=== PATIENT | female | born 1995 | race Caucasian/White ===

== ENCOUNTER 2022-02-22 18:28 | Emergency (ER) | payer OTHER ==
[~2022-02-22] VITALS: Ht 167.6 cm; Wt 81.9 kg
[2022-02-22 18:35] VITALS: BP 117/78
--- NOTE | 2022-02-22 18:54 | PHYS DOC ---
General Adult EDM: Chief Complaint: SHOULDER INJURY HPI: HPI: Patient is a 26-year-old female who presents to the emergency department for right shoulder pain. Patient reports that she feels like she is a muscle in her shoulder at work and then last night she was out drinking and she fell onto her right shoulder. She rates her pain 8 on 10. No treatment prior to arrival. Patient reports pain with range of motion but denies any decreased sensation to her extremity. Patient is also reporting a productive cough. She reports that her children are sick with viral symptoms. She reports mild shortness of breath. She denies nasal congestion, fevers, nausea, vomiting. (SANDRITA RECINOS APRN) Review of Systems: Review of Systems: Constitutional: See HPI HENT: see HPI Respiratory: See HPI GI: See HPI Musculoskeletal: See HPI Neurologic: See HPI (SANDRITA RECINOS APRN) Physical Exam: PE: Constitutional: Well developed, well nourished, no acute distress, non-toxic appearance. [] HENT: Normocephalic, atraumatic, bilateral external ears normal, oropharynx moist, no oral exudates, nose normal. [] Eyes: PERRL, EOMI, conjunctiva normal, no discharge. [] Neck: Normal range of motion, no stridor Cardiovascular:Heart rate regular rhythm, no murmur [] Lungs & Thorax: Bilateral breath sounds clear to auscultation [] Abdomen: Bowel sounds normal, soft, no tenderness, no masses, no pulsatile masses. [] Skin: Warm, dry, no erythema, no rash. [] Back normal range of motion Extremities: No tenderness, no cyanosis, no clubbing, ROM intact, no edema. [] Right shoulder: Pain with palpation to right scapula that radiates to her shoulder no obvious deformity range of motion due to pain, neuro intact Neurologic: Alert and oriented X 3, normal motor function, normal sensory function, no focal deficits noted. [] Psychologic: Affect normal, judgement normal, mood normal. [] (SANDRITA RECINOS APRN) EKG: EKG: [] (SANDRITA RECINOS APRN) Radiology/Procedures: Radiology/Procedures: []REASON: fall onto shoulder PROCEDURE: SHOULDER 2+V RIGHT XR SHOULDER_RIGHT 2+ VIEWS DATE: 02/22/2022 7:10 PM INDICATION: fall onto shoulder , pain COMPARISON: None. FINDINGS: Bones: There is no evidence of acute fracture or dislocation. Joints: The joint spaces are normal. The acromiohumeral distance is not narrowed. Miscellaneous: No abnormal soft tissue calcifications in the shoulder. IMPRESSION: No evidence of acute fracture. Electronically signed by: Marybel Yoder MD (02/22/2022 7:34 PM) [facility] DICTATED AND SIGNED BY: MARYBEL YODER MD DATE: 02/22/221932 CC: VERNELL LEES; SANDRITA RECINOS APRN ~ REASON: fall onto shoulder PROCEDURE: PORTABLE CHEST 1V XR CHEST 1V INDICATION: fall onto shoulder COMPARISON STUDY: None. FINDINGS: Lungs: Normal lung volume. No pulmonary mass or consolidation. The tracheobronchial tree and hilar structures are normal. Pleura: No pleural effusion or pneumothorax. Heart and Mediastinum: The cardiomediastinal silhouette is normal. The great vessels of the thorax are normal. Bones and Soft Tissues: The bones and soft tissues are within normal limits. IMPRESSION: No acute cardiopulmonary process. Electronically signed by: Marybel Yoder MD (02/22/2022 7:34 PM) [facility] DICTATED AND SIGNED BY: MARYBEL YODER MD DATE: 02/22/221933 CC: VERNELL LEES; SANDRITA RECINOS APRN ~ (SANDRITA RECINOS APRN) Heart Score: C/O Chest Pain: N/A Risk Factors: Risk Factors: DM, Current or recent (<one month) smoker, HTN, HLP, family history of CAD, obesity. Risk Scores: Score 0 - 3: 2.5% MACE over next 6 weeks - Discharge Home Score 4 - 6: 20.3% MACE over next 6 weeks - Admit for Clinical Observation Score 7 - 10: 72.7% MACE over next 6 weeks - Early Invasive Strategies (SANDRITA RECINOS APRN) Course & Med Decision Making: Course & Med Decision Making Pertinent Labs and Imaging studies reviewed. (See chart for details) [] Patient resents to the emergency department for right shoulder pain. An x- ray was performed that showed no acute findings. Patient's shoulder was placed in a sling she was given an ice pack. Patient advised to take anti-inflammatory medications. Patient is also in to be evaluated for a productive cough. Patient will be tested for Covid and influenza and have a chest x-ray performed to rule out pneumonia. Rapid influenza and COVID test negative. Chest x-ray did not show any acute findings. Patient will be discharged home with cough medication. Vital signs are stable. I discussed with patient all findings and diagnostic testing as well as the need to follow-up with PCP for further evaluation and treatment or return to the ER if any new or worsening symptoms. Strict return precautions were also discussed at length. Patient voiced understanding and agreement with the plan. Patient is hemodynamically stable at the time of disposition. (SANDRITA RECINOS APRN) Dragon Disclaimer: Dragon Disclaimer: This electronic medical record was generated, in whole or in part, using a voice recognition dictation system. (SANDRITA RECINOS APRN) Attending Co-Sign The patient was seen and interviewed as well as examined at the bedside. The chart was reviewed. The case was discussed. Agree with the plan of care. (PEREZ RODRIGUEZ DO) Departure Departure: Impression: Primary Impression: Cough Additional Impression: Fall Qualified Codes: W19.XXXA - Unspecified fall, initial encounter Disposition: HOME / SELF CARE / HOMELESS Condition: GOOD Referrals: VERNELL LEESP-C (PCP) Patient Instructions: Arm Sling Use, [id number], Cough, Adult, [id number] Additional Instructions: You are seen in the emergency department today for shoulder pain following a fall. Imaging performed did not show any acute findings. Take Tylenol and/or ibuprofen and apply ice. You are also reporting a cough. Chest x-ray did not show any acute pneumonia. Your Covid and influenza test were negative. You are being discharged home with cough medication that you can take. Follow-up with your primary care provider within a week. Return to the emergency department if you develop worsening of your shoulder pain, decreased range of motion or decreased sensation in your extremity, shortness of breath, chest pain, high fevers refractory to treatment, intractable nausea or vomiting, weakness. Scripts Benzonatate (BENZONATATE) 100 Mg Capsule 1 CAP PO TID for cough for 7 Days, #21 CAP 0 Refills Prov: SANDRITA RECINOS APRN 02/22/22 SANDRITA RECINOS APRN Feb 22, 2022 18:54 PEREZ RODRIGUEZ DO Feb 24, 2022 05:52
[2022-02-22] MEDS ORDERED: ACETAMINOPHEN 325 MG TABLET PO ONE (19:30)
--- NOTE | 2022-02-22 19:36 | RAD ---
XR SHOULDER_RIGHT 2+ VIEWS DATE: 02/22/2022 7:10 PM INDICATION: fall onto shoulder , pain COMPARISON: None. FINDINGS: Bones: There is no evidence of acute fracture or dislocation. Joints: The joint spaces are normal. The acromiohumeral distance is not narrowed. Miscellaneous: No abnormal soft tissue calcifications in the shoulder. IMPRESSION: No evidence of acute fracture. Electronically signed by: Davy Yoder MD (02/22/2022 7:34 PM) [facility]
--- NOTE | 2022-02-22 19:37 | RAD ---
XR CHEST 1V INDICATION: fall onto shoulder COMPARISON STUDY: None. FINDINGS: Lungs: Normal lung volume. No pulmonary mass or consolidation. The tracheobronchial tree and hilar st ructures are normal. Pleura: No pleural effusion or pneumothorax. Heart and Mediastinum: The cardiomediastinal silhouette is normal. The great vessels of the thorax ar e normal. Bones and Soft Tissues: The bones and soft tissues are within normal limits. IMPRESSION: No acute cardiopulmonary process. Electronically signed by: Davy Yoder MD (02/22/2022 7:34 PM) [facility]
[2022-02-22] MEDS ORDERED: BENZ-8 PO (19:56)
[2022-02-22 20:09] LABS: INFLUENZA A PATIENT NEGATIVE (NEGATIVE); INFLUENZA B PATIENT NEGATIVE (NEGATIVE)
== END 2022-02-22 20:20 | disposition home or self-care (01) ==
LOC: ER 18:28
DX: R05.9 Cough, unspecified (principal); M25.511 Pain in right shoulder; R06.02 Shortness of breath; Z20.822 Contact with and (suspected) exposure to COVID-19; W18.39XA Other fall on same level, initial encounter; Y93.89 Activity, other specified; Y92.89 Other specified places as the place of occurrence of the external cause; Y99.8 Other external cause status
CPT/HCPCS: 71045; 73030; 87428; 99284

== ENCOUNTER 2022-04-05 19:34 | Emergency (ER) | payer OTHER ==
[~2022-04-05] VITALS: Ht 167.6 cm; Wt 81.9 kg
[~2022-04-05 19:34] MED LIST: BENZ-8 PO
--- NOTE | 2022-04-05 19:39 | PHYS DOC ---
Past History Past Surgical History: Cholecystectomy Alcohol Use: Occasionally General Adult EDM: Chief Complaint: ABDOMINAL PAIN HPI: HPI: Patient is a 26-year-old female brought in by home EMS for epigastric and right upper quadrant pain. Patient states she had similar pain 2 days ago that was relieved with vomiting. Patient states that time it lasted about 10 to 15 jagjit leonard. Has been going on about 25 minutes before calling EMS. States she has vomited multiple times followed by dry heaving. Patient states she started 2 new medications 2 days ago. Patient states this feels similar to the pain she had with her gallbladder, had a cystectomy 1 year ago Review of Systems: Review of Systems: All other systems within normal limits except for as noted in the HPI Allergies: Allergies: Allergies Coded Allergies Type Severity Reaction Last Updated Verified No Known Drug Allergies 02/22/22 No Physical Exam: PE: Constitutional: Well developed, well nourished, no acute distress, non-toxic appearance. [] HENT: Normocephalic, atraumatic, bilateral external ears normal, nose normal. [] Eyes: PERRLA, conjunctiva normal, no discharge. [] Neck: No rigidity, supple, no stridor. [] Cardiovascular: Regular rate and rhythm, brisk cap refill [] Lungs & Thorax: Non labored symmetric respirations, no tachypnea or respiratory distress [] Abdomen: Soft, nondistended, epigastric and right upper quadrant tenderness. Skin: Warm, dry, no erythema, no rash. [] Back: Unremarkable Extremities: No deformities, range of motion grossly intact, no lower extremity edema [] Neurologic: Alert and oriented X 3, no focal deficits noted. [] Psychologic: Affect normal, judgement normal, mood normal. [] EKG: EKG: [] Radiology/Procedures: Radiology/Procedures: [][address] [address] IMAGING REPORT Signed PATIENT: ARTHUR RAO ACCOUNT: [id number] : 1995 LOCATION: ER AGE: 26 SEX: F EXAM STATUS: REG ER ORD. PHYSICIAN: DAVID HARDING MD REASON: Upper abd pain Hx: Cholecystectomy PROCEDURE: CT ABDOMEN PELVIS WO CONTRAST Abdominal and Pelvis CT, Without Contrast: History: Reason: Upper abd pain Hx: Cholecystectomy / Spl. Instructions: / History: Comparison: None. Procedure: Axial images are obtained of the abdomen and pelvis, without IV or oral contrast. Oral Contrast: No Findings: Evaluation of solid organs is limited without contrast. There is bilateral spondylolysis at L5-S1. There is prior cholecystectomy. The appendix is normal. Liver: Mild periportal edema. Spleen: Borderline enlarged. Pancreas: Normal. Adrenal Glands: Normal. Kidneys: There is a few tiny nonobstructive stone down to the right renal pelvis. There is no free air or free fluid. There is no lymphadenopathy. The urinary bladder appears normal. There is no pericolonic inflammation identified. Impression: 1. Bilateral spondylolysis at L5-S1. 2. Borderline splenomegaly. 3. Nonobstructive stones in the right renal pelvis. No obstructive uropathy. 4. Periportal edema in the liver is nonspecific but can be secondary to hepatitis. End impression PQRS Compliance Statement: One or more of the following individualized dose reduction techniques were utilized for this examination: 1. Automated exposure control 2. Adjustment of the mA and/or kV according to patient size 3. Use of iterative reconstruction technique Electronically signed by: Radha Avitia III, MD (04/05/2022 9:23 PM) [facility] DICTATED AND SIGNED BY: RADHA AVITIA III, MD DATE: 04/05/222113 CC: DAVID HARDING MD; VERNELL LEES CARE ATTENDANT-C ~ Heart Score: C/O Chest Pain: No Risk Factors: Risk Factors: DM, Current or recent (<one month) smoker, HTN, HLP, family history of CAD, obesity. Risk Scores: Score 0 - 3: 2.5% MACE over next 6 weeks - Discharge Home Score 4 - 6: 20.3% MACE over next 6 weeks - Admit for Clinical Observation Score 7 - 10: 72.7% MACE over next 6 weeks - Early Invasive Strategies Course & Med Decision Making: Course & Med Decision Making Pertinent Labs and Imaging studies reviewed. (See chart for details) Pain relieved with GI cocktail. Sent labs for hepatitis, due to abnormal appearance of liver on the CT scan. Patient's mom states that she has a previous history of overdosing with Tylenol and has some residual liver damage. LFTs are unremarkable [] CT scans had to be done without contrast due to national shortage. Shannan Disclaimer: Shannan Disclaimer: This electronic medical record was generated, in whole or in part, using a voice recognition dictation system. Departure Departure: Impression: Primary Impression: Gastritis Disposition: HOME / SELF CARE / HOMELESS Condition: STABLE Referrals: VERNELL LEES CARE ATTENDANT-C (PCP) Patient Instructions: Gastritis, Adult Scripts Omeprazole (OMEPRAZOLE) 40 Mg Capsule.dr 1 CAP PO DAILY for antacid, #30 CAP 3 Refills Prov: DAVID HARDING MD 04/05/22 Sucralfate (SUCRALFATE) 1 Gm Tablet 1 TAB PO TID for gastritis, #30 TAB 0 Refills Prov: DAVID HARDING MD 04/05/22 DAVID HARDING MD April 05, 2022 19:39
[2022-04-05] MEDS ORDERED: ONDANSETRON PF 4 MG/2 ML VIAL. IVP ONE (20:00)
[2022-04-05] MEDS ORDERED: KETOROLAC 15 MG/ML VIAL. IVP ONE (20:00)
[2022-04-05 20:41] LABS: BASO % 0 % (0-3); EOS % 1 % (0-3); HEMOGLOBIN 13.4 g/dL (12.0-15.5); LYMPH # 1.8 x10^3/uL (1.0-4.8); LYMPH % 19 % (24-48); MEAN CORPUSCULAR HEMOGLOBIN 29 pg (25-35); MEAN CORPUSCULAR HGB CONC 34 g/dL (31-37); MEAN CORPUSCULAR VOLUME 85 fL (79-100); MONO # 0.5 x10^3/uL (0.0-1.1); MONO % 5 % (0-9); NEUT # 7.3 x10^3uL (1.8-7.7); NEUT % 76 % (31-73); PLATELET COUNT 205 x10^3/uL (140-400); RED BLOOD COUNT 4.68 x10^6/uL (3.50-5.40); RED CELL DISTRIBUTION WIDTH 14.8 % (11.5-14.5); WHITE BLOOD COUNT 9.6 x10^3/uL (4.0-11.0)
[2022-04-05 20:50] LABS: CALCIUM 8.9 mg/dL (8.5-10.1); CREATININE 0.7 mg/dL (0.6-1.0); GFR 102.8; POTASSIUM 4.3 mmol/L (3.5-5.1)
[2022-04-05 20:56] LABS: ALBUMIN 3.5 g/dL (3.4-5.0); TOTAL BILIRUBIN 0.9 mg/dL (0.2-1.0)
--- NOTE | 2022-04-05 21:26 | RAD ---
Abdominal and Pelvis CT, Without Contrast: History: Reason: Upper abd pain Hx: Cholecystectomy / Spl. Instructions: / History: Comparison: None. Procedure: Axial images are obtained of the abdomen and pelvis, without IV or oral contrast. Oral Contrast: No Findings: Evaluation of solid organs is limited without contrast. There is bilateral spondylolysis at L5-S1. There is prior cholecystectomy. The appendix is normal. Liver: Mild periportal edema. Spleen: Borderline enlarged. Pancreas: Normal. Adrenal Glands: Normal. Kidneys: There is a few tiny nonobstructive stone down to the right renal pelvis. There is no free air or free fluid. There is no lymphadenopathy. The urinary bladder appears normal. There is no pericolonic inflammation identified. Impression: 1. Bilateral spondylolysis at L5-S1. 2. Borderline splenomegaly. 3. Nonobstructive stones in the right renal pelvis. No obstructive uropathy. 4. Periportal edema in the liver is nonspecific but can be secondary to hepatitis. End impression PQRS Compliance Statement: One or more of the following individualized dose reduction techniques were utilized for this examinat ion: 1. Automated exposure control 2. Adjustment of the mA and/or kV according to patient size 3. Use of iterative reconstruction technique Electronically signed by: Richard Dorantes III, MD (04/05/2022 9:23 PM) [facility]
[2022-04-05] MEDS ORDERED: LIDO:MAALOX 1:1 20 ML SINGLE DOSE. PO ONE (21:30)
[2022-04-05] MEDS ORDERED: FAMOTIDINE 20 MG/2 ML VIAL IVP ONE (22:00)
[2022-04-05 22:25] LABS: BACTERIA,URINE 0 /HPF (0-FEW); CLARITY,URINE CLEAR; COLOR,URINE YELLOW; GLUCOSE,URINE NEG (NEG); NITRITE,URINE NEG (NEG); RBC,URINE OCC /HPF (0-2); SQUAMOUS EPITHELIAL CELL,UR MOD /LPF; UROBILINOGEN,URINE 0.2 mg/dL (0.2 mg/dL); WBC,URINE 0 /HPF (0-4)
[2022-04-05] MEDS ORDERED: OMEP40CA7 PO (22:37)
[2022-04-05] MEDS ORDERED: SUCR1TAB PO (22:37)
[2022-04-05] MEDS ORDERED: FAMOTIDINE 20 MG/2 ML VIAL ONE (23:05)
[2022-04-05 23:16] VITALS: BP 98/64
== END 2022-04-05 23:15 | disposition home or self-care (01) ==
LOC: ER 19:34
DX: K29.70 Gastritis, unspecified, without bleeding (principal); Z90.49 Acquired absence of other specified parts of digestive tract
CPT/HCPCS: 36415; 74176; 80053; 81001; 81025; 83690; 85025; 86705; 86709; 86803; 87340; 96374; 96375; 99284; J1885; J2405; J3490

== ENCOUNTER 2022-04-09 08:41 | Emergency (ER) | payer OTHER ==
[~2022-04-09] VITALS: Ht 167.6 cm; Wt 81.9 kg
[~2022-04-09 08:41] MED LIST changes: +OMEP40CA7 PO; +SUCR1TAB PO
[2022-04-09 08:52] VITALS: BP 114/60
[2022-04-09] MEDS ORDERED: IV NORMAL SALINE 1,000ML 1,000 ML IV ONE (09:00)
[2022-04-09] MEDS ORDERED: ONDANSETRON PF 4 MG/2 ML VIAL. IVP ONE (09:15)
[2022-04-09 09:34] LABS: BASO % 0 % (0-3); EOS % 0 % (0-3); HEMATOCRIT 43.6 % (36.0-47.0); HEMOGLOBIN 14.9 g/dL (12.0-15.5); LYMPH # 0.6 x10^3/uL (1.0-4.8); LYMPH % 6 % (24-48); MEAN CORPUSCULAR HEMOGLOBIN 29 pg (25-35); MEAN CORPUSCULAR HGB CONC 34 g/dL (31-37); MEAN CORPUSCULAR VOLUME 86 fL (79-100); MONO # 0.3 x10^3/uL (0.0-1.1); MONO % 3 % (0-9); NEUT # 9.4 x10^3uL (1.8-7.7); NEUT % 91 % (31-73); PLATELET COUNT 204 x10^3/uL (140-400); RED BLOOD COUNT 5.07 x10^6/uL (3.50-5.40); RED CELL DISTRIBUTION WIDTH 14.6 % (11.5-14.5); WHITE BLOOD COUNT 10.4 x10^3/uL (4.0-11.0)
[2022-04-09 09:38] LABS: AMPHETAMINE/METHAMPHETAMINE POS (NEG); BARBITURATES NEG (NEG); BENZODIAZEPINES NEG (NEG); CANNABINOIDS NEG (NEG); COCAINE NEG (NEG); METHADONE NEG (NEG); OPIATES NEG (NEG); PHENCYCLIDINE NEG (NEG)
[2022-04-09 09:40] LABS: CALCIUM 8.7 mg/dL (8.5-10.1); CREATININE 0.9 mg/dL (0.6-1.0); GFR 76.3; POTASSIUM 4.1 mmol/L (3.5-5.1)
[2022-04-09 09:46] LABS: ALBUMIN 3.5 g/dL (3.4-5.0); ALBUMIN/GLOBULIN RATIO 0.9 (1.0-1.7); TOTAL BILIRUBIN 1.5 mg/dL (0.2-1.0); TOTAL PROTEIN 7.3 g/dL (6.4-8.2)
[2022-04-09 09:53] LABS: BACTERIA,URINE 0 /HPF (0-FEW); CLARITY,URINE CLEAR; COLOR,URINE YELLOW; GLUCOSE,URINE NEG (NEG); NITRITE,URINE NEG (NEG); RBC,URINE OCC /HPF (0-2); SQUAMOUS EPITHELIAL CELL,UR OCC /LPF; UROBILINOGEN,URINE 0.2 mg/dL (0.2 mg/dL); WBC,URINE 0 /HPF (0-4)
--- NOTE | 2022-04-09 09:56 | RAD ---
Exam Date: 04/09/2022 9:10 AM XR ABDOMEN 1V Indication: Pain. Reason: constipation x 2 days, vomiting this morning / Spl. Instructions: / Histo ry: . FINDINGS/ IMPRESSION: Comparison: CT from April 05, 2022 There is a non-dilated, non-obstructed bowel gas pattern. Air and fecal matter are seen within the c olon. The visualized osseous structures are intact. No definite radiopaque urinary tract calculi ar e seen. There are 2 linear metallic densities overlapping the right lower quadrant measuring approxi mately 3.0 x 0.5 cm, likely external to the patient, as they are changed in position on different luis a ges. These are not visualized prior CT from April 05, 2022. Correlate clinically to exclude ingested foreign bodies. Electronically signed by: Brian Matthews MD (04/09/2022 9:54 AM) [id number]
[2022-04-09] MEDS ORDERED: ONDA4TAB12 PO (10:10)
--- NOTE | 2022-04-09 10:11 | PHYS DOC ---
Past History Past Surgical History: Cholecystectomy, Alcohol Use: Rarely General Adult EDM: Chief Complaint: NAUSEA/VOMITING/DIARRHEA HPI: HPI: 27-year-old female presents with vomiting. The patient started having vomiting at 230 this morning. She believes that she has had about 7 episodes. She is most concerned because she thinks she vomited fecal matter. This was followed by bile. She is very concerned that she could be so constipated that she was vomiting poop. Patient has not had diarrhea. She denies fever or chills. She was nauseated all day yesterday. The patient was recently seen in this emergency room and treated for possible gastric ulcers or GERD. She has been taking these medications. Review of Systems: Review of Systems: Constitutional: Denies fever or chills Eyes: Denies change in visual acuity HENT: Denies nasal congestion or sore throat Respiratory: Denies cough or shortness of breath Cardiovascular: Denies chest pain or edema GI: Denies abdominal pain, nausea, vomiting, bloody stools or diarrhea : Denies dysuria Musculoskeletal: Denies back pain or joint pain Integument: Denies rash Neurologic: Denies headache, focal weakness or sensory changes Endocrine: Denies polyuria or polydipsia Lymphatic: Denies swollen glands Psychiatric: Denies depression or anxiety Current Medications: Current Meds: Current Medications Medications (Trade) Dose Ordered Sig/Wilfred Start Time Stop Time Status Last Admin Dose Admin Ondansetron HCl (Zofran) 4 mg 1X ONCE 04/09/22 09:15 04/09/22 09:16 DC 04/09/22 09:15 4 MG Sodium Chloride 1,000 ml @ 1,000 mls/hr 1X ONCE 04/09/22 09:00 04/09/22 09:59 DC 04/09/22 09:00 1,000 MLS/HR Allergies: Allergies: Allergies Coded Allergies Type Severity Reaction Last Updated Verified No Known Drug Allergies 02/22/22 No Physical Exam: PE: Constitutional: Well developed, well nourished, no acute distress, non-toxic appearance. [] HENT: Normocephalic, atraumatic, bilateral external ears normal, oropharynx moist, no oral exudates, nose normal. [] Eyes: PERRLA, EOMI, conjunctiva normal, no discharge. [] Neck: Normal range of motion, no tenderness, supple, no stridor. [] Cardiovascular:Heart rate regular rhythm, no murmur [] Lungs & Thorax: Bilateral breath sounds clear to auscultation [] Abdomen: Bowel sounds normal, soft, no tenderness, no masses, no pulsatile masses. [] Skin: Warm, dry, no erythema, no rash. [] Back: No tenderness, no CVA tenderness. [] Extremities: No tenderness, no cyanosis, no clubbing, ROM intact, no edema. [] Neurologic: Alert and oriented X 3, normal motor function, normal sensory function, no focal deficits noted. [] Psychologic: Affect normal, judgement normal, mood normal. [] Current Patient Data: Labs: Laboratory Tests Test 04/09/22 08:32 04/09/22 09:12 04/09/22 09:14 POC Urine HCG, Qualitative hcg negative (Negative) White Blood Count 10.4 x10^3/uL (4.0-11.0) Red Blood Count 5.07 x10^6/uL (3.50-5.40) Hemoglobin 14.9 g/dL (12.0-15.5) Hematocrit 43.6 % (36.0-47.0) Mean Corpuscular Volume 86 fL (79-100) Mean Corpuscular Hemoglobin 29 pg (25-35) Mean Corpuscular Hemoglobin Concent 34 g/dL (31-37) Red Cell Distribution Width 14.6 % (11.5-14.5) H Platelet Count 204 x10^3/uL (140-400) Neutrophils (%) (Auto) 91 % (31-73) H Lymphocytes (%) (Auto) 6 % (24-48) L Monocytes (%) (Auto) 3 % (0-9) Eosinophils (%) (Auto) 0 % (0-3) Basophils (%) (Auto) 0 % (0-3) Neutrophils # (Auto) 9.4 x10^3uL (1.8-7.7) H Lymphocytes # (Auto) 0.6 x10^3/uL (1.0-4.8) L Monocytes # (Auto) 0.3 x10^3/uL (0.0-1.1) Eosinophils # (Auto) 0.0 x10^3/uL (0.0-0.7) Basophils # (Auto) 0.0 x10^3/uL (0.0-0.2) Sodium Level 134 mmol/L (136-145) L Potassium Level 4.1 mmol/L (3.5-5.1) Chloride Level 101 mmol/L (98-107) Carbon Dioxide Level 23 mmol/L (21-32) Anion Gap 10 (6-14) Blood Urea Nitrogen 17 mg/dL (7-20) Creatinine 0.9 mg/dL (0.6-1.0) Estimated GFR (Cockcroft-Gault) 76.3 BUN/Creatinine Ratio 19 (6-20) Glucose Level 137 mg/dL (70-99) H Calcium Level 8.7 mg/dL (8.5-10.1) Total Bilirubin 1.5 mg/dL (0.2-1.0) H Aspartate Amino Transferase (AST) 21 U/L (15-37) Alanine Aminotransferase (ALT) 43 U/L (14-59) Alkaline Phosphatase 89 U/L (46-116) Total Protein 7.3 g/dL (6.4-8.2) Albumin 3.5 g/dL (3.4-5.0) Albumin/Globulin Ratio 0.9 (1.0-1.7) L Urine Collection Type Clean catch Urine Color Yellow Urine Clarity Clear Urine pH 6.0 Urine Specific Woodruff >=1.030 Urine Protein Neg (NEG-TRACE) Urine Glucose (UA) Neg mg/dL (NEG) Urine Ketones (Stick) Neg mg/dL (NEG) Urine Blood Neg (NEG) Urine Nitrite Neg (NEG) Urine Bilirubin Neg (NEG) Urine Urobilinogen Dipstick 0.2 mg/dL (0.2 mg/dL) Urine Leukocyte Esterase Neg (NEG) Urine RBC Occ /HPF (0-2) Urine WBC 0 /HPF (0-4) Urine Squamous Epithelial Cells Occ /LPF Urine Bacteria 0 /HPF (0-FEW) Urine Opiates Screen Neg (NEG) Urine Methadone Screen Neg (NEG) Urine Barbiturates Neg (NEG) Urine Phencyclidine Screen Neg (NEG) Urine Amphetamine/Methamphetamine Pos (NEG) Urine Benzodiazepines Screen Neg (NEG) Urine Cocaine Screen Neg (NEG) Urine Cannabinoids Screen Neg (NEG) Urine Ethyl Alcohol Neg (NEG) Vital Signs: Vital Signs Date Time Temp Pulse Resp B/P (MAP) Pulse Ox O2 Delivery O2 Flow Rate FiO2 04/09/22 08:52 98.2 110 20 114/60 (78) 98 Room Air EKG: EKG: [] Radiology/Procedures: Radiology/Procedures: [] Impressions: Exam Date: 04/09/2022 9:10 AM XR ABDOMEN 1V Indication: Pain. Reason: constipation x 2 days, vomiting this morning / Spl. Instructions: / History: . FINDINGS/ IMPRESSION: Comparison: CT from April 05, 2022 There is a non-dilated, non-obstructed bowel gas pattern. Air and fecal matter are seen within the colon. The visualized osseous structures are intact. No definite radiopaque urinary tract calculi are seen. There are 2 linear metallic densities overlapping the right lower quadrant measuring approximately 3.0 x 0.5 cm, likely external to the patient, as they are changed in position on different images. These are not visualized prior CT from April 05, 2022. Correlate clinically to exclude ingested foreign bodies. Electronically signed by: Sage Matthews MD (04/09/2022 9:54 AM) [id number] DICTATED AND SIGNED BY: SAGE MATTHEWS MD DATE: 04/09/22 0937 CC: PEREZ RODRIGUEZ DO; VERNELL LEES BEAD CUTTER-C ~ Heart Score: C/O Chest Pain: N/A Risk Factors: Risk Factors: DM, Current or recent (<one month) smoker, HTN, HLP, family history of CAD, obesity. Risk Scores: Score 0 - 3: 2.5% MACE over next 6 weeks - Discharge Home Score 4 - 6: 20.3% MACE over next 6 weeks - Admit for Clinical Observation Score 7 - 10: 72.7% MACE over next 6 weeks - Early Invasive Strategies Course & Med Decision Making: Course & Med Decision Making Pertinent Labs and Imaging studies reviewed. (See chart for details) The patient's labs are unremarkable. Her urinalysis is negative for infection. She is not . Her KUB is unremarkable. The patient likely just has a viral illness. She is already on treatment for GERD. I will discharge her with a prescription for Zofran and I have advised that she follow-up with GI if her symptoms persist. She is stable for discharge at this time. [] Shannan Disclaimer: Shannan Disclaimer: This electronic medical record was generated, in whole or in part, using a voice recognition dictation system. Departure Departure: Impression: Primary Impression: Vomiting Disposition: HOME / SELF CARE / HOMELESS Condition: STABLE Referrals: VERNELL LEESP-C (PCP) Patient Instructions: Nausea and Vomiting, [id number] PEREZ RODRIGUEZ DO April 09, 2022 10:11
[2022-04-09] MEDS ORDERED: PROM25TA10 PO (19:55)
== END 2022-04-09 10:26 | disposition home or self-care (01) ==
LOC: ER 08:41
DX: R11.2 Nausea with vomiting, unspecified (principal)
CPT/HCPCS: 36415; 74018; 80053; 80307; 81001; 81025; 85025; 96361; 96374; 99284; J2405; J7030

== ENCOUNTER 2022-04-09 17:02 | Emergency (ER) | payer OTHER ==
[~2022-04-09] VITALS: Ht 167.6 cm; Wt 81.9 kg
[~2022-04-09 17:02] MED LIST changes: +ONDA4TAB12 PO
[2022-04-09] MEDS ORDERED: KETOROLAC 15 MG/ML VIAL. IVP ONE (18:15)
[2022-04-09] MEDS ORDERED: diphenhydrAMINE 50 MG/ML VIAL IVP ONE (18:15)
[2022-04-09] MEDS ORDERED: PROCHLORPERAZINE 10 MG/2 ML VIAL. IV ONE (18:15)
[2022-04-09] MEDS ORDERED: IV NORMAL SALINE 1,000ML 1,000 ML IV ONE (18:15)
--- NOTE | 2022-04-09 18:24 | PHYS DOC ---
Past History Past Surgical History: Cholecystectomy, Alcohol Use: Rarely Adult General Chief Complaint Chief Complaint: NAUSEA/VOMITING/DIARRHEA HPI HPI Patient is a 27-year-old female presenting to the emergency department for evaluation of headache nausea and vomiting. Patient has been seen in the emergency department on April 05 for abdominal pain and had a work-up that was negative including a CT and then she came to the emergency department earlier this morning for abdominal pain nausea and vomiting and had a negative KUB and her labs are unremarkable and she was sent home for a viral syndrome. Patient says that she has a history of migraine headaches and feels that she is having her typical migraine headache at this time. She has diffuse pounding behind both eyes and has nausea and photosensitivity. She denies fevers chills neck stiffness. She is in no acute distress with normal vital signs. Review of Systems Review of Systems Constitutional: Denies fever or chills [] Eyes: Denies change in visual acuity, redness, or eye pain [] HENT: Denies nasal congestion or sore throat [] Respiratory: Denies cough or shortness of breath [] Cardiovascular: No additional information not addressed in HPI [] GI: Denies abdominal pain. + nausea, vomiting. No bloody stools or diarrhea [] : Denies dysuria or hematuria [] Musculoskeletal: Denies back pain or joint pain [] Integument: Denies rash or skin lesions [] Neurologic: + headache. No focal weakness or sensory changes [] All other systems were reviewed and found to be within normal limits, except as documented in this note. Current Medications Current Medications Current Medications Medications (Trade) Dose Ordered Sig/Wilfred Start Time Stop Time Status Last Admin Dose Admin Diphenhydramine HCl (Benadryl) 50 mg 1X ONCE 04/09/22 18:15 04/09/22 18:16 DC Ketorolac Tromethamine (Toradol 15mg Vial) 15 mg 1X ONCE 04/09/22 18:15 04/09/22 18:16 DC Prochlorperazine Edisylate (Compazine) 10 mg 1X ONCE 04/09/22 18:15 04/09/22 18:16 DC Sodium Chloride 1,000 ml @ 1,000 mls/hr 1X ONCE 04/09/22 18:15 04/09/22 19:14 Allergies Allergies Allergies Coded Allergies Type Severity Reaction Last Updated Verified No Known Drug Allergies 02/22/22 No Physical Exam Physical Exam Constitutional: Well developed, well nourished, no acute distress, non-toxic appearance. [] HENT: Normocephalic, atraumatic, bilateral external ears normal, oropharynx moist, no oral exudates, nose normal. [] Eyes: PERRLA, EOMI, conjunctiva normal, no discharge. [] Neck: Normal range of motion, no tenderness, supple, no stridor. [] Cardiovascular:Heart rate regular rhythm, no murmur [] Lungs & Thorax: Bilateral breath sounds clear to auscultation [] Abdomen: Bowel sounds normal, soft, no tenderness, no masses, no pulsatile masses. [] Skin: Warm, dry, no erythema, no rash. [] Back: No tenderness, no CVA tenderness. [] Extremities: No tenderness, no cyanosis, no clubbing, ROM intact, no edema. [] Neurologic: Alert and oriented X 3, normal motor function, normal sensory function, no focal deficits noted. Negative Kernigs and Brudzinskis EKG EKG [] Radiology/Procedures Radiology/Procedures [] Heart Score C/O Chest Pain: No Risk Factors: Risk Factors: DM, Current or recent (<one month) smoker, HTN, HLP, family history of CAD, obesity. Risk Scores: Risk Factors: DM, Current or recent (<one month) smoker, HTN, HLP, family history of CAD, obesity. Course & Med Decision Making Course & Med Decision Making I will check labs and treat her for her typical migraine headache and reassess. Patient has resolved pain and nausea in the emergency department and she is able to tolerate fluids by mouth with no difficulty and she has a repeat normal neurologic exam. Patient says she feels much better and would like to go home. She says she has Zofran but she was not able to hold it down so I recommended Phenergan suppositories but she refused but she is open to trying Phenergan instead for her nausea. I told her to her to drink plenty of fluids follow with a primary care provider within 2 to 3 days for recheck and come back to emergency department sooner with worsening pain fevers vomiting or other general concerns. Patient aware and agreeable with plan and verbalized understanding of above instructions. Dragon Disclaimer Dragon Disclaimer This electronic medical record was generated, in whole or in part, using a voice recognition dictation system. Departure Departure: Impression: Primary Impression: Headache Additional Impression: Nausea & vomiting Disposition: 01 HOME / SELF CARE / HOMELESS Condition: STABLE Referrals: [facility] (PCP) Patient Instructions: Migraine Headache, [id number] Scripts Promethazine Hcl (PROMETHAZINE HCL) 25 Mg Tablet 1 TAB PO PRN Q6HRS, #10 TAB Prov: ELIZABETH MISHRA DO 04/09/22 Problem Qualifiers Primary Impression: Headache Headache type: unspecified Headache chronicity pattern: unspecified pat tern Intractability: not intractable Qualified Codes: R51.9 - Headache, unspecified Additional Impression: Nausea & vomiting Vomiting type: unspecified Qualified Codes: R11.2 - Nausea with vomiting, unspecified ELIZABETH MISHRA DO April 09, 2022 18:24
[2022-04-09 19:14] LABS: BASO % 0 % (0-3); EOS % 0 % (0-3); HEMATOCRIT 41.2 % (36.0-47.0); LYMPH # 0.6 x10^3/uL (1.0-4.8); LYMPH % 8 % (24-48); MEAN CORPUSCULAR HEMOGLOBIN 29 pg (25-35); MEAN CORPUSCULAR HGB CONC 34 g/dL (31-37); MEAN CORPUSCULAR VOLUME 85 fL (79-100); MONO # 0.4 x10^3/uL (0.0-1.1); MONO % 5 % (0-9); NEUT # 6.4 x10^3uL (1.8-7.7); NEUT % 87 % (31-73); PLATELET COUNT 189 x10^3/uL (140-400); RED BLOOD COUNT 4.82 x10^6/uL (3.50-5.40); RED CELL DISTRIBUTION WIDTH 14.1 % (11.5-14.5); WHITE BLOOD COUNT 7.4 x10^3/uL (4.0-11.0)
[2022-04-09 19:21] LABS: CALCIUM 8.6 mg/dL (8.5-10.1); CREATININE 0.8 mg/dL (0.6-1.0); GFR 87.4; POTASSIUM 4.1 mmol/L (3.5-5.1)
[2022-04-09 19:27] LABS: ALBUMIN 3.4 g/dL (3.4-5.0); ALBUMIN/GLOBULIN RATIO 0.9 (1.0-1.7); TOTAL BILIRUBIN 1.6 mg/dL (0.2-1.0); TOTAL PROTEIN 7.2 g/dL (6.4-8.2)
[2022-04-09 19:40] LABS: INFLUENZA A PATIENT NEGATIVE (NEGATIVE); INFLUENZA B PATIENT NEGATIVE (NEGATIVE)
[2022-04-09] MEDS ORDERED: PROM25TA10 PO (19:55)
[2022-04-09 20:03] LABS: COLOR,URINE AMBER
[2022-04-09 20:04] LABS: BACTERIA,URINE 0 /HPF (0-FEW); CLARITY,URINE CLEAR; GLUCOSE,URINE NEG (NEG); NITRITE,URINE NEG (NEG); RBC,URINE OCC /HPF (0-2); SQUAMOUS EPITHELIAL CELL,UR OCC /LPF; WBC,URINE OCC /HPF (0-4)
[2022-04-09 20:13] VITALS: BP 120/72
== END 2022-04-09 20:12 | disposition home or self-care (01) ==
LOC: ER 17:02
DX: G43.909 Migraine, unspecified, not intractable, without status migrainosus (principal); R11.2 Nausea with vomiting, unspecified; Z20.822 Contact with and (suspected) exposure to COVID-19
CPT/HCPCS: 36415; 80053; 81001; 81025; 83690; 85025; 87428; 96361; 96374; 96375; 99284; J0780; J1200; J1885; J7030